=== PATIENT | male | born 1975 | race Caucasian/White ===

== ENCOUNTER → 2018-06-27 08:49 | Outpatient (CLI) | payer OTHER, SELFPAY ==
--- NOTE | 2018-06-27 08:53 | CT_ITS ---
CT abdomen pelvis wo con CLINICAL INDICATION: LLL Q quadrant dull abdominal pain 2 months. ITS.REASON: LLQ PAIN ORDERING PHYSICIAN: Jose Perkins PATIENT AGE: 43 years COMPARISON: None TECHNIQUE: No IV contrast. Oral contrast Redicat given Axial images obtained with sagittal and coronal reformats. All CT scans at the facility use one or more dose reduction, viz: automated exposure control, ma/kV adjustment per patient size (including targeted exams where dose is matched to indication, i.e. head), or iterative reconstruction technique. . FINDINGS Lower thorax: No acute finding Lung bases clear. Scant coronary calcification. No pericardial effusion.. Heart upper normal size. ABDOMEN/pelvis. Lack of of IV contrast does somewhat decrease sensitivity, particularly evaluating solid organs:. Liver: No masses or biliary dilatation. Gallbladder: Nondistended. No radio opaque stones. Spleen: Unremarkable.. Tiny splenule adjacent to spleen Adrenals: Unremarkable Pancreas: No masses or peripancreatic fluid collections.. Minimal calcification towards detailed the spleen likely related to splenic artery On final review, significantly slight hazy appearance into the pancreas which requires correlation with amylase and lipase. On also note some scattered small lymph nodes throughout the mesentery most evident to the root of the mesentery.... Possible mild mesenteric adenitis although less common in a 43-year-old patient. May reflect minor underlying inflammation, although the exact focus are not evident.. One of the larger nodes measuring 8 x 12 mm at left root of mesentery. No significant retroperitoneal adenopathy evident.Only few small left periaortic nodes up to 1 cm Kidneys/ureters: No masses. No obstruction/No hydronephrosis tiny nonobstructing less than 2 mm calculus lower pole left kidney on coronal image 43. .. No ureteral dilatation or obvious ureteral calculi. GI tract Stomach moderate food and fluid. Small bowel. Unremarkable. WNL No dilatation. Normal to Upper normal wall thickness proximal small bowel.. Appendix: Normal.. A would note that oral contrast is seen within the stomach. Otherwise it outlined the entire large bowel. The history states patient drank Redicat 2 hours prior to the scan but was likely a longer time interval rather than a rapid transit given the overall appearance. I do not see any Fluid levels in the large bowel to suggest liquid stool. Large bowel contrast is seen throughout the entire large bowel. No focal wall thickening. No diverticulitis. There may be a few diverticuli question is seen at descending colon but these are unimpressive. Terminal ileum unremarkable There are some laxity at inguinal ring bilateral, most evident on the left. Minimal bulging & asymmetric generous fat along the left left inguinal canal. Suggest a small left fat-containing inguinal hernia. No bowel loops PELVIS: Prostate unremarkable with moderate size. 4.2 cm transverse dimension. Seminal vesicles with moderate size and slight stranding about this region. Nonspecific. No fluid in the pelvis. Bladder: Nondistended. No obvious stones or masses. Upper normal to mild wall thickening. May benefit from correlation is urinalysis to exclude cystitis. . Bones: No acute fracture pelvis and vertebral bodies intact. No significant appearing lesions.. 6 mm small round sclerotic focus at left iliac bone is most likely benign sclerotic bone island. Mild facet hypertrophy throughout lower L-spine IMPRESSION: ......... . No acute findings abdomen or pelvis. . . Perhaps A few very small diverticuli left colon but no diverticulitis ..There Are slight increased number of small to moderate size mesenteric lymph nodes. Nonspecific.- May reflect minor mesenteric adenitis or some m
== END ==
PROVIDERS: PCP Internal Medicine; Visit Provider Internal Medicine
DX: R10.32 Left lower quadrant pain (principal)
CPT/HCPCS: 74176

== ENCOUNTER → 2021-08-15 12:24 | Outpatient (CLI) | payer OTHER, SELFPAY ==
[2021-08-15 16:48] LABS: Chloride 99 mmol/L (98-107); Potassium 4.2 mmoL/L (3.5-5.1); Sodium 130 mmol/L (136-145)
[2021-08-15 16:50] LABS: Alanine Aminotransferase 64 U/L (12-78); Alkaline Phosphatase 106 U/L (38-126); Aspartate Amino Transferase 55 U/L (17-59); Bilirubin,Total 0.8 mg/dl (0.2-1.3); Blood Urea Nitrogen 15 mg/dl (9-20); Estimated Glomerular Filt Rate 90 ml/min (>60); GFR (African American) 109 ML/MIN (>60)
[2021-08-15 16:51] LABS: Albumin Level 4.9 g/dl (3.5-5.0); Albumin/Globulin Ratio 2.1 (1.1-1.8); Anion Gap 11.2 mEq/L (5-15); Calcium 8.5 mg/dl (8.4-10.2); Carbon Dioxide 24 mmol/L (22.0-30.0); Chol/HDL Ratio 3.8 (1-3.5); Cholesterol 187 mg/dl (140-200); Globulin 2.3 g/dL (1.3-3.2); Glucose 79 mg/dl (74-100); HDL Cholesterol 49 mg/dl (40-60); Total Protein,Serum 7.2 g/dl (6.3-8.2)
[2021-08-15 17:02] LABS: Direct LDL Cholesterol 83.14 mg/dL (100-129)
[2021-08-15 17:04] LABS: Triglycerides 437 mg/dl (30-150)
== END ==
PROVIDERS: Visit Provider Internal Medicine
DX: I10 Essential (primary) hypertension (principal); E78.5 Hyperlipidemia, unspecified; R73.01 Impaired fasting glucose
CPT/HCPCS: 80053; 80061

== ENCOUNTER → 2021-09-17 12:23 | Outpatient (CLI) | payer OTHER, SELFPAY ==
[2021-09-17 15:10] LABS: Sodium 136 mmol/L (136-145)
[2021-09-17 15:24] LABS: Triglycerides 615 mg/dl (30-150)
== END ==
PROVIDERS: Visit Provider Internal Medicine
DX: I10 Essential (primary) hypertension (principal); E78.5 Hyperlipidemia, unspecified; E87.0 Hyperosmolality and hypernatremia
CPT/HCPCS: 84295; 84478

== ENCOUNTER → 2022-02-18 09:47 | Outpatient (CLI) | payer OTHER, SELFPAY ==
[2022-02-18 10:39] LABS: Basophils # 0.1 K/mm3 (0-0.2); Basophils % 0.9 % (0.1-2.0); Eosinophils # 0.1 K/mm3 (0.0-0.4); Eosinophils % 1.5 % (0.1-12.0); Hematocrit 46.9 % (42.0-52.0); Hemoglobin 14.3 g/dL (14.1-18.0); Lymphocytes # 1.1 K/mm3 (0.7-4.5); Lymphocytes % 18.8 % (10-50); Mean Corpuscular HGB Conc 30.5 g/dL (31.8-35.4); Mean Corpuscular Hemoglobin 29.3 pg (27.0-31.2); Mean Corpuscular Volume 96.3 fl (80-94); Mean Platelet Volume 7.5 fl (7.4-10.4); Monocytes # 0.6 K/mm3 (0.1-1.0); Monocytes % 10.7 % (1.7-9.3); Neutrophils # 3.9 K/mm3 (1.8-7.8); Neutrophils % 68.1 % (37.0-80.0); Platelet Count 314 K/mm3 (142-424); Red Blood Count 4.87 M/mm3 (4.60-6.20); Red Cell Distribution Width 12.6 % (11.5-17.5); White Blood Count 5.7 K/mm3 (4.8-10.8)
[2022-02-18 10:55] LABS: Chloride 101 mmol/L (98-107); Potassium 4.5 mmoL/L (3.5-5.1)
[2022-02-18 10:56] LABS: Sodium 135 mmol/L (136-145)
[2022-02-18 10:58] LABS: Alanine Aminotransferase 42 U/L (12-78); Anion Gap 13.5 mEq/L (5-15); Aspartate Amino Transferase 45 U/L (17-59); Blood Urea Nitrogen 15 mg/dl (9-20); Calcium 9.6 mg/dl (8.4-10.2); Carbon Dioxide 25 mmol/L (22.0-30.0); Cholesterol 170 mg/dl (140-200); Estimated Glomerular Filt Rate 90 ml/min (>60); GFR (African American) 109 ML/MIN (>60); Glucose 124 mg/dl (74-100); Triglycerides 225 mg/dl (30-150); VLDL Cholesterol 45 mg/dL (0-40)
[2022-02-18 10:59] LABS: Albumin Level 4.3 g/dl (3.5-5.0); Albumin/Globulin Ratio 1.9 (1.1-1.8); Alkaline Phosphatase 106 U/L (38-126); Bilirubin,Total 0.8 mg/dl (0.2-1.3); Globulin 2.3 g/dL (1.3-3.2); Total Protein,Serum 6.6 g/dl (6.3-8.2)
[2022-02-18 15:05] LABS: Chol/HDL Ratio 3.7 (1-3.5); HDL Cholesterol 46 mg/dl (40-60)
[2022-02-19 08:51] LABS: Direct LDL Cholesterol 89 mg/dL (100-129)
== END ==
PROVIDERS: PCP Internal Medicine; Visit Provider Internal Medicine
DX: I10 Essential (primary) hypertension (principal); E78.5 Hyperlipidemia, unspecified; R73.01 Impaired fasting glucose
CPT/HCPCS: 80053; 80061; 85025

== ENCOUNTER → 2022-08-21 11:55 | Outpatient (CLI) | payer OTHER, SELFPAY ==
[2022-08-21 12:57] LABS: Chloride 101 mmol/L (98-107); Sodium 134 mmol/L (136-145)
[2022-08-21 12:58] LABS: Potassium 4.6 mmoL/L (3.5-5.1)
[2022-08-21 13:00] LABS: Alanine Aminotransferase 65 U/L (12-78); Albumin Level 4.5 g/dl (3.5-5.0); Albumin/Globulin Ratio 1.7 (1.1-1.8); Alkaline Phosphatase 101 U/L (38-126); Anion Gap 11.6 mEq/L (5-15); Aspartate Amino Transferase 55 U/L (17-59); Bilirubin,Total 0.5 mg/dl (0.2-1.3); Blood Urea Nitrogen 12 mg/dl (9-20); Calcium 8.9 mg/dl (8.4-10.2); Carbon Dioxide 26 mmol/L (22.0-30.0); Cholesterol 212 mg/dl (140-200); Estimated Glomerular Filt Rate 80 ml/min (>60); GFR (African American) 97 ML/MIN (>60); Globulin 2.6 g/dL (1.3-3.2); Glucose 87 mg/dl (74-100); Total Protein,Serum 7.1 g/dl (6.3-8.2)
[2022-08-21 13:01] LABS: Chol/HDL Ratio 4.5 (1-3.5); HDL Cholesterol 47 mg/dl (40-60)
[2022-08-21 13:12] LABS: Direct LDL Cholesterol 106.49 mg/dL (100-129)
[2022-08-21 13:17] LABS: Triglycerides 445 mg/dl (30-150)
== END ==
PROVIDERS: PCP Internal Medicine; Visit Provider Internal Medicine
DX: I10 Essential (primary) hypertension (principal); E78.5 Hyperlipidemia, unspecified; R73.01 Impaired fasting glucose
CPT/HCPCS: 80053; 80061

== ENCOUNTER → 2023-02-24 12:14 | Outpatient (CLI) | payer OTHER, SELFPAY ==
[2023-02-24 13:05] LABS: Basophils % 0.6 % (0.1-2.0); Eosinophils # 0.1 K/mm3 (0.0-0.4); Eosinophils % 1.3 % (0.1-12.0); Hematocrit 47.7 % (42.0-52.0); Hemoglobin 15.2 g/dL (14.1-18.0); Lymphocytes % 13.6 % (10-50); Mean Corpuscular HGB Conc 31.9 g/dL (31.8-35.4); Mean Corpuscular Hemoglobin 30.4 pg (27.0-31.2); Mean Corpuscular Volume 95.2 fl (80-94); Mean Platelet Volume 7.3 fl (7.4-10.4); Monocytes # 0.6 K/mm3 (0.1-1.0); Monocytes % 8.6 % (1.7-9.3); Neutrophils # 5.4 K/mm3 (1.8-7.8); Neutrophils % 75.9 % (37.0-80.0); Platelet Count 256 K/mm3 (142-424); Red Blood Count 5.01 M/mm3 (4.60-6.20); Red Cell Distribution Width 12.8 % (11.5-17.5); White Blood Count 7.1 K/mm3 (4.8-10.8)
[2023-02-24 13:45] LABS: Anion Gap 14.2 mEq/L (5-15); Blood Urea Nitrogen 12 mg/dl (9-20); Carbon Dioxide 27 mmol/L (22.0-30.0); Chloride 98 mmol/L (98-107); Estimated Glomerular Filt Rate 90 ml/min (>60); GFR (African American) 109 ML/MIN (>60); Potassium 4.2 mmoL/L (3.5-5.1); Sodium 135 mmol/L (136-145)
[2023-02-24 13:46] LABS: Alanine Aminotransferase 59 U/L (12-78); Albumin Level 4.5 g/dl (3.5-5.0); Albumin/Globulin Ratio 1.7 (1.1-1.8); Alkaline Phosphatase 108 U/L (38-126); Aspartate Amino Transferase 52 U/L (17-59); Bilirubin,Total 0.7 mg/dl (0.2-1.3); Calcium 9.3 mg/dl (8.4-10.2); Chol/HDL Ratio 3.3 (1-3.5); Cholesterol 176 mg/dl (140-200); Globulin 2.6 g/dL (1.3-3.2); Glucose 93 mg/dl (74-100); HDL Cholesterol 53 mg/dl (40-60); Total Protein,Serum 7.1 g/dl (6.3-8.2); Triglycerides 205 mg/dl (30-150); VLDL Cholesterol 41 mg/dL (0-40)
[2023-02-24 13:56] LABS: Direct LDL Cholesterol 88.13 mg/dL (100-129)
== END ==
PROVIDERS: PCP Internal Medicine; Visit Provider Internal Medicine
DX: I10 Essential (primary) hypertension (principal); E78.5 Hyperlipidemia, unspecified; R73.01 Impaired fasting glucose
CPT/HCPCS: 80053; 80061; 85025

== ENCOUNTER 2023-09-27 13:11 | Outpatient (CLI) | payer OTHER, SELFPAY ==
[2023-09-27 16:03] LABS: Alanine Aminotransferase 64 U/L (12-78); Albumin/Globulin Ratio 1.5 (1.1-1.8); Alkaline Phosphatase 123 U/L (38-126); Anion Gap 11.2 mEq/L (5-15); Aspartate Amino Transferase 53 U/L (17-59); Bilirubin,Total 0.4 mg/dl (0.2-1.3); Blood Urea Nitrogen 14 mg/dl (9-20); Calcium 9.2 mg/dl (8.4-10.2); Carbon Dioxide 26 mmol/L (22.0-30.0); Chloride 101 mmol/L (98-107); Chol/HDL Ratio 9.6 (1-3.5); Cholesterol 316 mg/dl (140-200); Estimated Glomerular Filt Rate 103 ml/min (>60); GFR (African American) 124 ML/MIN (>60); Globulin 2.7 g/dL (1.3-3.2); Glucose 104 mg/dl (74-100); HDL Cholesterol 33 mg/dl (40-60); Potassium 4.2 mmoL/L (3.5-5.1); Sodium 134 mmol/L (136-145); Total Protein,Serum 6.7 g/dl (6.3-8.2)
[2023-09-27 16:10] LABS: Triglycerides 661 mg/dl (30-150)
[2023-09-27 16:13] LABS: Direct LDL Cholesterol 122.77 mg/dL (100-129)
== END 2023-09-27 23:59 ==
LOC: LAB.DROPOF 13:12
PROVIDERS: PCP Internal Medicine; Visit Provider Internal Medicine
DX: E78.5 Hyperlipidemia, unspecified (principal); I10 Essential (primary) hypertension; R73.01 Impaired fasting glucose
CPT/HCPCS: 80053; 80061

== ENCOUNTER 2024-06-02 23:01 | Emergency (ER) | payer OTHER, SELFPAY ==
[2024-06-02 23:02] VITALS: BP 142/88; PULSE 93; RESP 18; TEMP 36.9; O2SAT 98; BMI 27.8
[2024-06-02 23:30] VITALS: BP 129/80; PULSE 94; O2SAT 98
--- NOTE | 2024-06-02 23:34 | XR_ITS ---
PROCEDURE INFORMATION: Exam: XR Right Ankle Exam date and time: 06/02/2024 11:43 PM Age: 49 years old Clinical indication: Injury or trauma; Fall; Swelling (edema) and other: Pain; Ankle; Right TECHNIQUE: Imaging protocol: Radiologic exam of the right ankle. Views: 3 or more views. COMPARISON: No relevant prior studies available. FINDINGS: Bones/joints: Trimalleolar fracture is noted involving the distal fibula metaphyseal diaphyseal region with posterior and medial displacement of the distal fracture component and the medial malleolus with posterior displacement of the distal fracture component and the posterior malleolus with posterior displacement. Associated articular margin offset of the posterior malleolar fracture also noted. Mild posterior subluxation of the talus in relation to the tibia also identified. Soft tissues: Normal. IMPRESSION: Trimalleolar fracture as above.
--- NOTE | 2024-06-02 23:51 | XR_ITS ---
PROCEDURE INFORMATION: Exam: XR Right Tibia and Fibula Exam date and time: 06/02/2024 11:47 PM Age: 49 years old Clinical indication: Injury or trauma; Fall; Swelling (edema) and other: Pain; Ankle; Right; Additional info: Fall pain ankle TECHNIQUE: Imaging protocol: Radiologic exam of the right tibia and fibula. Views: 2 views. COMPARISON: CR XR ANKLE RT MIN 3V 06/02/2024 11:43 PM FINDINGS: Bones/joints: Trimalleolar fracture of the ankle redemonstrated. No other fracture seen. Soft tissues: Normal. IMPRESSION: Trimalleolar fracture.
--- NOTE | 2024-06-02 23:53 | ED_ITS ---
Discharge Plan Disposition Patient Disposition: Xfer Short-Term Hosp Condition: Fair Prescriptions Prescriptions: No Action atenolol 25 mg tablet 25 mg PO DAILY Qty: 90 1RF lisinopril-hydrochlorothiazide 20-12.5 mg tablet 1 tab PO DAILY Qty: 90 3RF Referrals Follow up/Referrals: Jose Perkins MD [Primary Care Provider] - See instructions Activity Restrictions/Add. Instructions Additional Instructions/Restrictions: Go directly to [facility] ER, do not make any stops along the way. Do not eat or drink until you have been evaluated by the ER team. Do not put any weight on the right leg. Clinical Impressions Clinical Impression: Closed trimalleolar fracture Qualifiers: Encounter type: initial encounter Laterality: right Qualified Code(s): S82.851A - Displaced trimalleolar fracture of right lower leg, initial encounter for closed fracture Stand Alone Forms Stand Alone Forms: Transfer Record - ED Print Language Print Language: Citizen Of [place] Discharge ED Provider: Jose Alfredo Baron General Adult HPI General Chief complaint: Extremity Injury, Lower Stated complaint: Ao06/02@[id number] Rt ankle inj Time Seen by Provider: 06/02/24 23:31 Mode of Arrival: Wheelchair Source of Information: Patient and Spouse Limitations: Physical Limitations Description of Symptoms (Recalled from ER Triage Doc. by RN): Patient slipped, right leg went under him and he felt a pop. Ankle is very obviously deformed at this point. History of Present Illness HPI narrative: 49-year-old male with history of hypertension presents to the ER with right ankle pain. Patient reports approximately 1 hour prior to arrival he slipped in the den and his right leg went under him when he fell, he felt a pop. Ankle has significant swelling upon arrival, patient states he has difficulty moving the foot, with explanation he specifically explains difficulty with dorsiflexion. He has full feeling in the foot and it is warm. He denies any other injuries or complaints. He has not taken anything for pain, no known medication allergies. Related Data Previous Rx's ?Medication ?Instructions ?Recorded atenolol 25 mg tablet 25 mg PO DAILY #90 tabs 02/08/24 lisinopril 20 1 tab PO DAILY #90 tabs 03/09/24 mg-hydrochlorothiazide 12.5 mg tablet Allergies Allergy/AdvReac Type Severity Reaction Status Date / Time No Known Allergies Allergy Unverified 02/08/24 08:05 [facility] Disclaimer: The information contained in this section may have been updated after the patient was seen, as this information can be updated by other users. Social History Smoking Status: Never smoker alcohol intake: current current occupational status: other ROS Obtained: Yes Systems reviewed as appropriate & no additional complaints except as documented ROS per HPI Physical Exam General General appearance: alert and in no apparent distress Comment: Appears uncomfortable but nontoxic, not in extremis Head Head exam: atraumatic and normocephalic Eye Eye exam: Present PERRL and EOMI ENT ENT exam: Present mucous membranes moist Neck Neck exam: Present normal inspection and full ROM Chest Chest inspection: Present symmetric chest wall rise Respiratory Respiratory exam: Absent respiratory distress or stridor Cardiovascular Cardiovascular exam: Present regular rate and normal rhythm Extremities Exam Extremities exam: Present tenderness (Maximal tenderness over medial malleolus), joint swelling (Swelling of the right ankle) and other (Patient has full sensation of the right foot, movement intact of all toes, brisk capillary refill, secondary to swelling PT is not able to be felt but is dopplerable, DP palpable); Absent full ROM (Range of motion of right ankle extremely limited secondary to pain) Neurological Exam Neurological exam: Present alert and oriented X3; Absent motor sensory deficit Psychiatric Psychiatric exam: Present normal affect and normal mood Skin Skin exam: Present warm and dry Medical Decision Making Medical Records Screening: Per USPSTF and CDC recommendations, given the prevalence of disease in our region, it is our hospital?s policy to screen for HIV and viral Hepatitis for all patients aged 18 and over and those with ongoing risk factors. Marcellus Inquiry Pt receiving controlled substance: No Vital Signs: 06/02/24 23:02 06/02/24 23:30 06/03/24 00:00 Temperature 98.5 F Temperature Source Oral Pulse Rate 94 H 101 H Pulse Rate [Right Radial] 93 H Respiratory Rate 18 Blood Pressure 129/80 146/94 H Blood Pressure [Right Arm] 142/88 H Blood Pressure Mean [Right Arm] 106 Blood Pressure Source [Right Arm] Automatic Cuff Blood Pressure Position [Right Arm] Supine 02 Sat by Pulse Oximetry 98 98 95 Oxygen Delivery Method Room Air 06/03/24 00:30 Temperature Temperature Source Pulse Rate 107 H Pulse Rate [Right Radial] Respiratory Rate Blood Pressure 149/93 H Blood Pressure [Right Arm] Blood Pressure Mean [Right Arm] Blood Pressure Source [Right Arm] Blood Pressure Position [Right Arm] 02 Sat by Pulse Oximetry 97 Oxygen Delivery Method Orders (Tests/Meds): ED MEDICATIONS Discontinued Medications Generic Name Dose Route Start Last Admin Trade Name Hilario PRN Reason Stop Dose Admin Hydrocodone Bitart/Acetaminophen 1 tab 06/02/24 23:48 06/03/24 00:03 Hydrocodone/Apap 5/325 Mg Tablet PO 06/02/24 23:49 1 tab ONCE ONE Administration Ibuprofen 600 mg 06/02/24 23:48 06/03/24 00:03 Ibuprofen 600 Mg Tablet PO 06/02/24 23:49 600 mg ONCE ONE Administration Lidocaine HCl 10 ml 06/03/24 00:31 06/03/24 00:42 Lidocaine 1% 10ml Mdv IJ 06/03/24 00:32 10 ml ONCE ONE Administration ORDERS Category Date Time Status Tibia/fibula XR right 2 views [XR tibia fibula RT 2V] Exams 06/02/24 23:51 Completed Stat XR ankle RT min 3V Stat Exams 06/02/24 23:34 Completed Medical Decision Narrative: In summary, this 49-year-old male with comorbidities as described in HPI presents to the emergency department today with right ankle pain after fall. On initial evaluation patient is hemodynamically stable, obvious swelling of the right ankle with maximal tenderness over the medial malleolus, neurovascularly intact distally though pulses are only dopplerable secondary to swelling. Differential diagnosis includes but is not limited to fracture, dislocation, soft tissue injury, considered neurovascular injury however this does not appear to be present based on exam. Based on these concerns, I ordered x-ray imaging, pain control. Patient received Sachse, ibuprofen for pain management. X-rays personally interpreted demonstrate trimalleolar fracture of the right ankle, see radiology read for final interpretation. I discussed this case with Dr. Velasquez with orthopedics who recommends transfer due to the significant posterior fracture fragment increasing the instability of the ankle. I discussed this case with transfer center including Dr. Bustamante and Dr. Lewis with orthopedics at . Patient was accepted for ED to ED transfer for further evaluation. Dr. Lewis recommended posterior slab splint to be applied in our ER for stability prior to transfer. Patient was splinted, see procedure note for details. Hematoma block with lidocaine was used for pain management. Patient tolerated procedures well. Patient was also provided crutches, is able to take the patient by private vehicle to [facility] which I believe is appropriate since he does not require immediate ongoing medical management that would be required by an ambulance service. Patient transferred in stable condition. who is driving the patient was given explicit instructions on going directly [facility], to not make any stops along the way, patient was instructed to remain n.p.o. and nonweightbearing on the right lower extremity. They are using a wheelchair for him to get around. Procedures Orthopedic Fracture Reduction Fracture #1: Time Out Performed: Yes Side: right Fracture Reduction Location: tibia and fibula Analgesia: hematoma block Technique: traction/counter-traction Post-reduction neuro exam: intact and no change Post-reduction vascular exam: intact and no change Splint Applied: Yes Patient Tolerated Procedure: well Additional Comments: 10 mL 1% lidocaine without epinephrine used for hematoma block Orthopedic Splinting/Casting Injury #1: Side: right Lower Extremity Injury Location: lower leg Lower Extremity Immobilizer: posterior splint (Posterior slab splint with soft roll, Ortho-Glass, Axel wrap personally applied and adjusted by me) Post Cast/Splinting Neuro Status: intact and no change Post Cast/Splinting Vasc Status: intact and no change Critical Care Critical Care Time Critical Care Time: No
[2024-06-03] VITALS: BP 146/94; PULSE 101; O2SAT 95
[2024-06-03] MEDS: HYDROCODONE/APAP 5/325 MG TABLET 1 TAB PO (00:03)
[2024-06-03] MEDS: IBUPROFEN 600 MG TABLET PO (00:03)
[2024-06-03 00:30] VITALS: BP 149/93; PULSE 107; O2SAT 97
[2024-06-03] MEDS: LIDOCAINE 1% 10ML MDV 10 ML IJ (00:42)
--- NOTE | 2024-06-03 00:42 | PC.NURSE ---
report called to bunny
[2024-06-03 01:31] VITALS: BP 130/74; PULSE 80; RESP 16; TEMP 36.6; O2SAT 98
== END 2024-06-03 01:41 | disposition short-term general hospital (02) ==
PROVIDERS: Emergency Provider Emergency Medicine; PCP Internal Medicine
DX: S82.851A Displaced trimalleolar fracture of right lower leg, initial encounter for closed fracture (principal); M25.571 Pain in right ankle and joints of right foot; W01.0XXA Fall on same level from slipping, tripping and stumbling without subsequent striking against object, initial encounter; Y93.89 Activity, other specified; Y92.9 Unspecified place or not applicable
CPT/HCPCS: 73590; 73610; 99283

== ENCOUNTER 2024-09-28 08:00 | Outpatient (RCR) | payer OTHER, SELFPAY | END 2024-09-28 23:59 | disposition home or self-care (01) | LOC: PT 08:00 | PROVIDERS: PCP Internal Medicine; Visit Provider Orthopaedic Surgery | DX: S82.851A Displaced trimalleolar fracture of right lower leg, initial encounter for closed fracture (principal) | CPT/HCPCS: 97110; 97140; 97163; 97530 ==

== ENCOUNTER 2024-10-31 08:00 | Outpatient (RCR) | payer OTHER, SELFPAY | END 2024-10-31 23:59 | disposition home or self-care (01) | LOC: PT 08:00 | PROVIDERS: PCP Internal Medicine; Visit Provider Orthopaedic Surgery | DX: S82.851A Displaced trimalleolar fracture of right lower leg, initial encounter for closed fracture (principal) | CPT/HCPCS: 97110; 97164; 97530 ==

== ENCOUNTER 2024-11-21 08:00 | Outpatient (RCR) | payer OTHER, SELFPAY | END 2024-11-21 23:59 | disposition home or self-care (01) | LOC: PT 08:00 | PROVIDERS: PCP Internal Medicine; Visit Provider Orthopaedic Surgery | DX: S82.851A Displaced trimalleolar fracture of right lower leg, initial encounter for closed fracture (principal) | CPT/HCPCS: 97016; 97110; 97530 ==